=== PATIENT | male | born 1955 | race Caucasian/White ===

== ENCOUNTER 2019-02-02 12:01 | Inpatient (IN) ==
[2019-02-02] MEDS ORDERED: PROPOFOL 1,000 MG/100 ML BOTTLE IV ONE (12:07)
[2019-02-02 12:23] LABS: ABG Base Excess -17.9 MMOL/L (-2.5-2.5); ABG HCO3 11.5 MMOL/L (20-26); ABG PCO2 31.7 MM HG (35-48); ABG TCO2 9.8 MMOL/L (23-27)
[2019-02-02 12:25] LABS: ABG PH 7.137 (7.35-7.45)
[2019-02-02 12:39] LABS: Basophils % 0.1 % (0.0-0.8); Eosinophils % 0.1 % (0.00-10.9); Hematocrit 41.3 VOL% (42.0-52.0); Hemoglobin 13.8 GM/DL (14.0-18.0); Immature Granulocytes % 0.8 %; Immature Granulocytes Absolute 0.11 #; Lymphocytes # 0.8 10*3/uL (1.4-4.0); Mean Corpuscular HGB Conc 33.4 GM/DL (32-36); Mean Corpuscular Volume 85.3 FL (87-102); Mean Platelet Volume 10.8 FL (9.6-12.0); Monocytes % 2.3 % (1.7-12.7); Neutrophils % 90.7 % (38.7-73.9); Platelet Count 190 T/CUMM (130-400); Red Blood Count 4.84 MC/CUMM (3.8-5.5); Red Cell Distribution Width 15.6 % (9.3-17.3); White Blood Count 13.6 T/CUMM (4-12)
[2019-02-02 13:11] LABS: Apearance,Urine Slightly Hazy (Clear); Bilirubin,Urine Negative (Negative); Blood, Urine Large mg/dL (Negative); Glucose,Urine (UA) 150 mg/dL (Negative); Ketones,Urine Negative (Negative); Mucus,Urine Occasional /LPF (Occasional); Nitrite,Urine Negative (Negative); Protein,Urine 100 MG/DL; RBC,Urine 2170 /HPF (0-4); Urine Color Yellow (Yellow); Urine Specific Gravity 1.013 (1.001-1.035); Urine Urobilinogen < 2.0 EU/DL (0.2-1.0); WBC,Urine 1 /HPF (0-6)
[2019-02-02 13:28] LABS: Anisocytosis Slight; Lymphocytes 6 % (20-55); Platelet Estimate Normal; Segmented Neutrophils 86 % (50-85); Total Cells Counted 100
[2019-02-02 13:29] LABS: Ovalocytes Slight
[2019-02-02] MEDS ORDERED: CALCIUM GLUCONATE 2,000 MG in SODIUM CHLORIDE 0.9% 100 ML IV ONE (13:30)
[2019-02-02] MEDS ORDERED: SODIUM BICARBONATE 50 MEQ/50 ML VIAL IV STA (13:30)
[2019-02-02] MEDS: PROPOFOL 1,000 MG/100 ML BOTTLE IV SCH ×2 (14:36→18:00)
[2019-02-02] MEDS ORDERED: CALCIUM GLUCONATE 1,000 MG/10 ML VIAL IV ONE (14:39)
[2019-02-02 14:50] LABS: Hepatitis B Core IgM Quant 0.09 Index; Hepatitis B Surface Ag Quant 0.15 Index; Hepatitis B Surface Ag Result Negative (Negative); Hepatitis C Virus Ab Quant > 11.00 Index; Hepatitis C Virus Ab Result Positive (Negative)
[2019-02-02 15:05] LABS: ABG Base Excess -19.2 MMOL/L (-2.5-2.5); ABG HCO3 10.7 MMOL/L (20-26); ABG Oxygen Saturation 95.1 % (95-100); ABG PCO2 30.5 MM HG (35-48); ABG PO2 79.5 MM HG (80-95)
[2019-02-02 15:23] LABS: ABG PH 7.115 (7.35-7.45)
[2019-02-02] MEDS ORDERED: HEPARIN/NACL 0.9% 2 UNITS/ML 500 ML IV ONE (15:58)
[2019-02-02] MEDS ORDERED: LEVOFLOXACIN INJ 750 MG in PREMIX 1 EACH IV SCH (16:00)
[2019-02-02 17:23] LABS: Albumin 3.4 G/DL (3.4-5.0); Bilirubin,Total 0.4 MG/DL (0.2-1.0); Calcium 9.6 MG/DL (8.5-10.1); Osmolality,Calculated 315.3 MOS/KG (273-304); Total Protein 7.2 G/DL (6.4-8.3)
[2019-02-02] MEDS ORDERED: GLUCAGON 1 MG VIAL IM PRN (17:23)
[2019-02-02] MEDS ORDERED: DEXTROSE 50% 25 GM/50 ML VIAL IV PRN (17:23)
[2019-02-02] MEDS ORDERED: PROPOFOL 1,000 MG/100 ML BOTTLE IV SCH (17:23)
[2019-02-02] MEDS: INSULIN LISPRO 100 UNIT/ML SUBCUT SCH ×2 (18:41→20:24)
[2019-02-02] MEDS ORDERED: PHENYLEPHRINE DRIP 40 MG/250 ML PREMIX IV PRN (18:47)
[2019-02-02 19:31] LABS: ABG Base Excess -17.2 MMOL/L (-2.5-2.5); ABG HCO3 11.9 MMOL/L (20-26); ABG Oxygen Saturation 98.6 % (95-100); ABG PCO2 25.5 MM HG (35-48)
[2019-02-02 19:32] LABS: ABG PH 7.198 (7.35-7.45)
[2019-02-02] MEDS ORDERED: SODIUM BICARBONATE 50 MEQ/50 ML VIAL IV ONE (19:37)
[2019-02-02 19:58] LABS: Calcium 9.1 MG/DL (8.5-10.1)
[2019-02-02] MEDS: MEROPENEM 500 MG in SODIUM CHLORIDE 0.9% 100 ML IV SCH (20:04)
[2019-02-02] MEDS: SODIUM BICARB INJ 50 MEQ in SODIUM CHLORIDE 0.45% 1,000 ML IV SCH (20:24)
[2019-02-02] MEDS ORDERED: FAMOTIDINE 20 MG/2 ML VIAL IV SCH (21:00)
[2019-02-03] MEDS: INSULIN LISPRO 100 UNIT/ML SUBCUT SCH ×7 (00:29→23:59)
[2019-02-03] MEDS: MEROPENEM 500 MG in SODIUM CHLORIDE 0.9% 100 ML IV SCH (01:24)
[2019-02-03] MEDS ORDERED: SODIUM BICARBONATE 50 MEQ/50 ML VIAL IV ONE (01:28)
[2019-02-03] MEDS ORDERED: SODIUM CHLORIDE 0.9% 500 ML IV SCH (01:30)
[2019-02-03 01:57] LABS: Calcium 8.6 MG/DL (8.5-10.1); Osmolality,Calculated 303.4 MOS/KG (273-304)
[2019-02-03] MEDS ORDERED: INSULIN REGULAR IV ONE (02:00)
[2019-02-03] MEDS ORDERED: DEXTROSE 10% IV ONE (02:00)
[2019-02-03] MEDS: PROPOFOL 1,000 MG/100 ML BOTTLE IV SCH ×2 (03:57→16:38)
[2019-02-03 04:18] LABS: ABG Base Excess -9.8 MMOL/L (-2.5-2.5); ABG HCO3 15.1 MMOL/L (20-26); ABG Oxygen Saturation 98.8 % (95-100); ABG PH 7.319 (7.35-7.45)
[2019-02-03 04:25] LABS: Basophils % 0.1 % (0.0-0.8); Hematocrit 33.5 VOL% (42.0-52.0); Hemoglobin 11.5 GM/DL (14.0-18.0); Immature Granulocytes % 0.5 %; Lymphocytes # 0.9 10*3/uL (1.4-4.0); Lymphocytes % 4.5 % (21.2-54.2); Mean Corpuscular HGB Conc 34.3 GM/DL (32-36); Mean Corpuscular Volume 83.1 FL (87-102); Mean Platelet Volume 11.1 FL (9.6-12.0); Monocytes % 5.4 % (1.7-12.7); Neutrophils % 89.5 % (38.7-73.9); Platelet Count 134 T/CUMM (130-400); Red Blood Count 4.03 MC/CUMM (3.8-5.5); Red Cell Distribution Width 15.5 % (9.3-17.3); White Blood Count 20.4 T/CUMM (4-12)
[2019-02-03 04:48] LABS: Alanine Aminotransferase 17 U/L (16-61); Albumin 2.7 G/DL (3.4-5.0); Alkaline Phosphatase 59 U/L (45-117); Aspartate Amino Transferase 11 U/L (0-37); Bilirubin,Total < 0.39 MG/DL (0.2-1.0); Blood Urea Nitrogen 75 MG/DL (7-18); Calcium 7.8 MG/DL (8.5-10.1); Estimated Glom Filtration Rate 15 ML/MIN; Glucose 299 MG/DL (74-106); Osmolality,Calculated 305.8 MOS/KG (273-304); Total Protein 6.2 G/DL (6.4-8.3)
[2019-02-03 05:03] LABS: Band Neutrophils 1 % (0-10); Hypochromasia 1+; Lymphocytes 6 % (20-55); Microcytosis 1+; Segmented Neutrophils 88 % (50-85); Total Cells Counted 100
[2019-02-03 05:04] LABS: Ovalocytes Slight; Platelet Estimate Adequate
[2019-02-03] MEDS ORDERED: SODIUM CHLORIDE 0.9% 500 ML IV ONE (07:39)
[2019-02-03] MEDS ORDERED: CALCIUM GLUCONATE 2,000 MG in SODIUM CHLORIDE 0.9% 100 ML IV ONE (08:00)
[2019-02-03] MEDS: methylPREDNISolone SOD SUC 40 MG/1 ML VIAL IV SCH ×2 (08:56→20:12)
[2019-02-03] MEDS: ALBUTEROL/IPRATROPIUM 3 ML NEB RESP TX SCH ×2 (13:19→20:13)
[2019-02-03] MEDS ORDERED: HEPARIN 10,000 UNIT/10 ML VIAL IV SCH (13:30)
[2019-02-03] MEDS: SODIUM BICARB INJ 50 MEQ in SODIUM CHLORIDE 0.45% 1,000 ML IV SCH ×2 (13:53→23:53)
[2019-02-03] MEDS: FAMOTIDINE 20 MG/2 ML VIAL IV SCH (20:15)
[2019-02-03] MEDS: MORPHINE 4 MG/1 ML VIAL IV PRN (21:19)
[2019-02-03] MEDS ORDERED: ACETAMINOPHEN 650 MG SUPP RECTAL PRN (21:26)
[2019-02-04] MEDS: MORPHINE 4 MG/1 ML VIAL IV PRN ×2 (01:55→14:05)
[2019-02-04] MEDS: MEROPENEM 500 MG in SODIUM CHLORIDE 0.9% 100 ML IV SCH (02:07)
[2019-02-04] MEDS: ALBUTEROL/IPRATROPIUM 3 ML NEB RESP TX SCH ×4 (02:16→19:22)
[2019-02-04] MEDS ORDERED: SODIUM CHLORIDE 0.9% 1,000 ML IV ONE (02:44)
[2019-02-04] MEDS ORDERED: ENOXAPARIN 80 MG/0.8 ML SYRINGE SUBCUT SCH (03:00)
[2019-02-04 03:10] LABS: ABG Base Excess -4.1 MMOL/L (-2.5-2.5); ABG Oxygen Saturation 99.6 % (95-100); ABG PCO2 33.2 MM HG (35-48); ABG PH 7.391 (7.35-7.45); ABG TCO2 18.3 MMOL/L (23-27)
[2019-02-04 03:34] LABS: Basophils % 0.1 % (0.0-0.8); Hematocrit 28.8 VOL% (42.0-52.0); Hemoglobin 9.9 GM/DL (14.0-18.0); Immature Granulocytes % 0.8 %; Immature Granulocytes Absolute 0.13 #; Lymphocytes # 1.1 10*3/uL (1.4-4.0); Lymphocytes % 6.6 % (21.2-54.2); Mean Corpuscular HGB Conc 34.4 GM/DL (32-36); Mean Corpuscular Volume 83.7 FL (87-102); Mean Platelet Volume 11.4 FL (9.6-12.0); Monocytes % 3.2 % (1.7-12.7); Neutrophils % 89.3 % (38.7-73.9); Platelet Count 124 T/CUMM (130-400); Red Blood Count 3.44 MC/CUMM (3.8-5.5); Red Cell Distribution Width 15.6 % (9.3-17.3); White Blood Count 16.5 T/CUMM (4-12)
[2019-02-04 04:16] LABS: Calcium 7.5 MG/DL (8.5-10.1); Osmolality,Calculated 293.8 MOS/KG (273-304)
[2019-02-04] MEDS: INSULIN LISPRO 100 UNIT/ML SUBCUT SCH ×5 (04:20→20:46)
[2019-02-04] MEDS ORDERED: DILTIAZEM 50 MG/10 ML VIAL IV ONE (04:52)
[2019-02-04] MEDS: PROPOFOL 1,000 MG/100 ML BOTTLE IV SCH ×3 (05:51→20:57)
[2019-02-04] MEDS: methylPREDNISolone SOD SUC 40 MG/1 ML VIAL IV SCH ×2 (07:35→20:46)
[2019-02-04] MEDS: LEVOFLOXACIN INJ 500 MG in PREMIX 1 EACH IV SCH (07:37)
[2019-02-04] MEDS: SODIUM BICARB INJ 50 MEQ in SODIUM CHLORIDE 0.45% 1,000 ML IV SCH ×2 (11:11→21:43)
[2019-02-04] MEDS ORDERED: MAGNESIUM SULF RIDER 1 GM in PREMIX 1 EACH IV ONE (11:30)
[2019-02-04 12:47] LABS: PT Patient Result 10.9 SECS (9.6-12.2)
[2019-02-04] MEDS: APIXABAN 2.5 MG TABLET PO SCH (20:45)
[2019-02-04] MEDS: ASCORBIC ACID 500 MG TABLET PO SCH (20:45)
[2019-02-04] MEDS: SERTRALINE 25 MG TABLET PO SCH (20:45)
[2019-02-04] MEDS: carvediloL 3.125 MG TABLET PO SCH (20:45)
[2019-02-04] MEDS: FAMOTIDINE 20 MG/2 ML VIAL IV SCH (20:49)
[2019-02-05] MEDS: INSULIN LISPRO 100 UNIT/ML SUBCUT SCH ×7 (00:28→23:21)
[2019-02-05] MEDS: ALBUTEROL/IPRATROPIUM 3 ML NEB RESP TX SCH ×4 (01:47→20:14)
[2019-02-05] MEDS: MEROPENEM 500 MG in SODIUM CHLORIDE 0.9% 100 ML IV SCH (02:12)
[2019-02-05] MEDS: PROPOFOL 1,000 MG/100 ML BOTTLE IV SCH ×4 (03:25→21:19)
[2019-02-05 03:31] LABS: ABG Base Excess -0.3 MMOL/L (-2.5-2.5); ABG HCO3 24.2 MMOL/L (20-26); ABG Oxygen Saturation 99.6 % (95-100); ABG PCO2 36.7 MM HG (35-48); ABG PH 7.421 (7.35-7.45); ABG TCO2 21.3 MMOL/L (23-27); Allen Test Positive; Pt O2 Delivery Device Ventilator
[2019-02-05 05:23] LABS: Hematocrit 24.9 VOL% (42.0-52.0); Hemoglobin 8.4 GM/DL (14.0-18.0); Immature Granulocytes % 0.6 %; Immature Granulocytes Absolute 0.05 #; Lymphocytes # 0.7 10*3/uL (1.4-4.0); Lymphocytes % 7.8 % (21.2-54.2); Mean Corpuscular HGB Conc 33.7 GM/DL (32-36); Mean Corpuscular Volume 84.7 FL (87-102); Mean Platelet Volume 11.6 FL (9.6-12.0); Monocytes % 4.4 % (1.7-12.7); Neutrophils % 87.2 % (38.7-73.9); Platelet Count 106 T/CUMM (130-400); Red Blood Count 2.94 MC/CUMM (3.8-5.5); Red Cell Distribution Width 15.2 % (9.3-17.3); White Blood Count 8.5 T/CUMM (4-12)
[2019-02-05 05:55] LABS: Prealbumin 21.3 MG/DL (20-40)
[2019-02-05 05:57] LABS: Albumin 2.4 G/DL (3.4-5.0); Bilirubin,Total 0.7 MG/DL (0.2-1.0); Calcium 7.6 MG/DL (8.5-10.1); Total Protein 5.4 G/DL (6.4-8.3)
[2019-02-05] MEDS: methylPREDNISolone SOD SUC 40 MG/1 ML VIAL IV SCH ×2 (07:49→23:18)
[2019-02-05] MEDS: MORPHINE 4 MG/1 ML VIAL IV PRN ×4 (07:50→17:11)
[2019-02-05] MEDS: SODIUM BICARB INJ 50 MEQ in SODIUM CHLORIDE 0.45% 1,000 ML IV SCH ×2 (08:23→18:32)
[2019-02-05] MEDS: carvediloL 3.125 MG TABLET PO SCH ×2 (08:25→21:49)
[2019-02-05] MEDS: ASCORBIC ACID 500 MG TABLET PO SCH ×2 (08:25→21:50)
[2019-02-05] MEDS: APIXABAN 2.5 MG TABLET PO SCH ×2 (08:25→21:49)
[2019-02-05] MEDS ORDERED: SODIUM POLYSTYRENE SULFATE 15 GM/60 ML BOTTLE PO PRN (10:05)
[2019-02-05] MEDS: SERTRALINE 25 MG TABLET PO SCH (21:50)
[2019-02-05] MEDS: FAMOTIDINE 20 MG/2 ML VIAL IV SCH (23:20)
[2019-02-06] MEDS: ALBUTEROL/IPRATROPIUM 3 ML NEB RESP TX SCH ×4 (00:11→19:25)
[2019-02-06] MEDS: PROPOFOL 1,000 MG/100 ML BOTTLE IV SCH ×5 (01:44→20:48)
[2019-02-06] MEDS: MEROPENEM 500 MG in SODIUM CHLORIDE 0.9% 100 ML IV SCH (03:16)
[2019-02-06 04:03] LABS: ABG Base Excess 1.2 MMOL/L (-2.5-2.5); ABG HCO3 25.1 MMOL/L (20-26); ABG Oxygen Saturation 98.7 % (95-100); ABG PCO2 36.7 MM HG (35-48); ABG PH 7.453 (7.35-7.45); ABG PO2 206.9 MM HG (80-95); ABG TCO2 26.2 MMOL/L (23-27); Allen Test Positive; Pt O2 Delivery Device Ventilator
[2019-02-06 04:17] LABS: Calcium 7.6 MG/DL (8.5-10.1); Osmolality,Calculated 295.7 MOS/KG (273-304)
[2019-02-06 04:45] LABS: Basophils % 0.1 % (0.0-0.8); Hematocrit 27.1 VOL% (42.0-52.0); Hemoglobin 9.2 GM/DL (14.0-18.0); Immature Granulocytes % 0.8 %; Immature Granulocytes Absolute 0.07 #; Lymphocytes # 0.5 10*3/uL (1.4-4.0); Lymphocytes % 5.4 % (21.2-54.2); Mean Corpuscular HGB Conc 33.9 GM/DL (32-36); Mean Corpuscular Volume 85.8 FL (87-102); Mean Platelet Volume 12.1 FL (9.6-12.0); Monocytes % 2.7 % (1.7-12.7); Red Blood Count 3.16 MC/CUMM (3.8-5.5); Red Cell Distribution Width 14.9 % (9.3-17.3); White Blood Count 8.9 T/CUMM (4-12)
[2019-02-06 04:47] LABS: Platelet Count 95 T/CUMM (130-400)
[2019-02-06] MEDS: INSULIN LISPRO 100 UNIT/ML SUBCUT SCH ×6 (05:17→23:40)
[2019-02-06 05:24] LABS: Hypochromasia 1+; Lymphocytes 5 % (20-55); Microcytosis 1+; Segmented Neutrophils 90 % (50-85)
[2019-02-06 05:25] LABS: Ovalocytes Slight; Platelet Estimate Decreased
[2019-02-06 05:26] LABS: Total Cells Counted 100
[2019-02-06] MEDS: SODIUM BICARB INJ 50 MEQ in SODIUM CHLORIDE 0.45% 1,000 ML IV SCH ×2 (05:27→16:30)
[2019-02-06] MEDS: MORPHINE 4 MG/1 ML VIAL IV PRN ×2 (05:50→21:10)
[2019-02-06] MEDS: LEVOFLOXACIN INJ 500 MG in PREMIX 1 EACH IV SCH (07:55)
[2019-02-06] MEDS: methylPREDNISolone SOD SUC 40 MG/1 ML VIAL IV SCH ×2 (07:55→20:25)
[2019-02-06] MEDS: carvediloL 3.125 MG TABLET PO SCH ×2 (09:40→20:25)
[2019-02-06] MEDS: ASCORBIC ACID 500 MG TABLET PO SCH ×2 (09:40→20:25)
[2019-02-06] MEDS: APIXABAN 2.5 MG TABLET PO SCH ×2 (09:40→20:25)
[2019-02-06] MEDS ORDERED: DIGOXIN 0.5 MG/2 ML AMP IV ONE ×2 (09:43→12:00)
[2019-02-06 19:38] VITALS: BP 143/74
[2019-02-06] MEDS: FAMOTIDINE 20 MG/2 ML VIAL IV SCH (20:25)
[2019-02-06] MEDS: SERTRALINE 25 MG TABLET PO SCH (20:41)
[2019-02-07] MEDS: PROPOFOL 1,000 MG/100 ML BOTTLE IV SCH ×5 (01:33→22:44)
[2019-02-07] MEDS: ALBUTEROL/IPRATROPIUM 3 ML NEB RESP TX SCH ×4 (01:39→18:51)
[2019-02-07] MEDS: SODIUM BICARB INJ 50 MEQ in SODIUM CHLORIDE 0.45% 1,000 ML IV SCH ×3 (02:53→23:52)
[2019-02-07] MEDS: MEROPENEM 500 MG in SODIUM CHLORIDE 0.9% 100 ML IV SCH (02:53)
[2019-02-07 03:48] LABS: ABG Base Excess 2.3 MMOL/L (-2.5-2.5); ABG HCO3 26.5 MMOL/L (20-26); ABG Oxygen Saturation 99.1 % (95-100); ABG PH 7.409 (7.35-7.45); ABG TCO2 24.9 MMOL/L (23-27); Allen Test Positive; Pt O2 Delivery Device Ventilator
[2019-02-07 03:52] LABS: Hematocrit 27.8 VOL% (42.0-52.0); Hemoglobin 9.2 GM/DL (14.0-18.0); Immature Granulocytes % 0.7 %; Immature Granulocytes Absolute 0.05 #; Lymphocytes # 0.5 10*3/uL (1.4-4.0); Lymphocytes % 7.4 % (21.2-54.2); Mean Corpuscular HGB Conc 33.1 GM/DL (32-36); Mean Corpuscular Volume 87.7 FL (87-102); Mean Platelet Volume 10.8 FL (9.6-12.0); Monocytes % 5.1 % (1.7-12.7); Neutrophils % 86.8 % (38.7-73.9); Platelet Count 98 T/CUMM (130-400); Red Blood Count 3.17 MC/CUMM (3.8-5.5); Red Cell Distribution Width 14.6 % (9.3-17.3); White Blood Count 6.9 T/CUMM (4-12)
[2019-02-07 04:03] LABS: Calcium 7.6 MG/DL (8.5-10.1); Osmolality,Calculated 301.5 MOS/KG (273-304)
[2019-02-07] MEDS: INSULIN LISPRO 100 UNIT/ML SUBCUT SCH ×6 (04:38→23:53)
[2019-02-07 04:43] LABS: Platelet Estimate Decreased; Polychromasia Few
[2019-02-07] MEDS: methylPREDNISolone SOD SUC 40 MG/1 ML VIAL IV SCH ×2 (09:00→20:24)
[2019-02-07] MEDS ORDERED: DIGOXIN 0.5 MG/2 ML AMP IV SCH (09:00)
[2019-02-07] MEDS: carvediloL 3.125 MG TABLET PO SCH ×2 (09:09→20:20)
[2019-02-07] MEDS: APIXABAN 2.5 MG TABLET PO SCH ×2 (09:09→20:20)
[2019-02-07] MEDS: ASCORBIC ACID 500 MG TABLET PO SCH ×2 (09:09→20:20)
[2019-02-07] MEDS: MORPHINE 4 MG/1 ML VIAL IV PRN ×2 (17:58→21:58)
[2019-02-07] MEDS: SERTRALINE 25 MG TABLET PO SCH (20:20)
[2019-02-07] MEDS: FAMOTIDINE 20 MG/2 ML VIAL IV SCH (20:20)
[2019-02-08] MEDS: ALBUTEROL/IPRATROPIUM 3 ML NEB RESP TX SCH ×4 (00:40→20:26)
[2019-02-08] MEDS: MORPHINE 4 MG/1 ML VIAL IV PRN ×3 (02:10→19:47)
[2019-02-08] MEDS: MEROPENEM 500 MG in SODIUM CHLORIDE 0.9% 100 ML IV SCH (02:11)
[2019-02-08 03:24] LABS: Allen Test Positive; Pt O2 Delivery Device Ventilator
[2019-02-08 03:25] LABS: ABG Base Excess 2.7 MMOL/L (-2.5-2.5); ABG HCO3 26.9 MMOL/L (20-26); ABG PCO2 47.1 MM HG (35-48); ABG PH 7.386 (7.35-7.45); ABG TCO2 25.9 MMOL/L (23-27)
[2019-02-08 03:38] LABS: Eosinophils % 0.1 % (0.00-10.9); Hematocrit 28.4 VOL% (42.0-52.0); Hemoglobin 9.1 GM/DL (14.0-18.0); Immature Granulocytes % 1.1 %; Immature Granulocytes Absolute 0.08 #; Lymphocytes # 0.5 10*3/uL (1.4-4.0); Mean Corpuscular Volume 89.3 FL (87-102); Mean Platelet Volume 10.9 FL (9.6-12.0); Monocytes % 5.1 % (1.7-12.7); Neutrophils % 86.7 % (38.7-73.9); Platelet Count 91 T/CUMM (130-400); Red Blood Count 3.18 MC/CUMM (3.8-5.5); Red Cell Distribution Width 14.2 % (9.3-17.3); White Blood Count 7.3 T/CUMM (4-12)
[2019-02-08 03:57] LABS: Calcium 7.4 MG/DL (8.5-10.1); Osmolality,Calculated 303.4 MOS/KG (273-304)
[2019-02-08 04:01] LABS: Anisocytosis Slight; Microcytosis 1+; Ovalocytes Slight; Platelet Estimate Decreased
[2019-02-08] MEDS: INSULIN LISPRO 100 UNIT/ML SUBCUT SCH ×5 (04:40→20:07)
[2019-02-08] MEDS: PROPOFOL 1,000 MG/100 ML BOTTLE IV SCH (05:04)
[2019-02-08] MEDS: APIXABAN 2.5 MG TABLET PO SCH ×2 (08:16→20:09)
[2019-02-08] MEDS: ASCORBIC ACID 500 MG TABLET PO SCH ×2 (08:17→20:08)
[2019-02-08] MEDS: carvediloL 3.125 MG TABLET PO SCH (08:17)
[2019-02-08] MEDS: LEVOFLOXACIN INJ 500 MG in PREMIX 1 EACH IV SCH (08:26)
[2019-02-08] MEDS: methylPREDNISolone SOD SUC 40 MG/1 ML VIAL IV SCH ×2 (08:26→19:48)
[2019-02-08] MEDS: SODIUM BICARB INJ 50 MEQ in SODIUM CHLORIDE 0.45% 1,000 ML IV SCH ×3 (11:16→21:57)
[2019-02-08] MEDS: hydrALAZINE 25 MG TABLET PO SCH ×3 (14:20→20:10)
[2019-02-08] MEDS ORDERED: hydrALAZINE 20 MG/1 ML VIAL IV PRN (14:48)
[2019-02-08] MEDS: amLODIPine 10 MG TABLET PO SCH (15:25)
[2019-02-08] MEDS: FAMOTIDINE 20 MG/2 ML VIAL IV SCH (20:08)
[2019-02-08] MEDS: SERTRALINE 25 MG TABLET PO SCH (20:10)
[2019-02-08] MEDS: carvediloL 6.25 MG TABLET PO SCH (20:12)
[2019-02-09] MEDS: INSULIN LISPRO 100 UNIT/ML SUBCUT SCH ×4 (00:49→12:02)
[2019-02-09] MEDS: ALBUTEROL/IPRATROPIUM 3 ML NEB RESP TX SCH ×3 (01:17→12:47)
[2019-02-09] MEDS: MORPHINE 4 MG/1 ML VIAL IV PRN ×2 (01:20→07:10)
[2019-02-09 05:39] LABS: Calcium 7.9 MG/DL (8.5-10.1); Osmolality,Calculated 296.4 MOS/KG (273-304)
[2019-02-09] MEDS: SODIUM BICARB INJ 50 MEQ in SODIUM CHLORIDE 0.45% 1,000 ML IV SCH (09:17)
[2019-02-09] MEDS: carvediloL 6.25 MG TABLET PO SCH (09:25)
[2019-02-09] MEDS: hydrALAZINE 25 MG TABLET PO SCH ×2 (09:25→12:27)
[2019-02-09] MEDS: ASCORBIC ACID 500 MG TABLET PO SCH (09:25)
[2019-02-09] MEDS: amLODIPine 10 MG TABLET PO SCH (09:26)
[2019-02-09] MEDS: APIXABAN 2.5 MG TABLET PO SCH (09:26)
[2019-02-09] MEDS: methylPREDNISolone SOD SUC 40 MG/1 ML VIAL IV SCH (09:38)
== END 2019-02-09 13:08 | DRG 870 ==
LOC: EDBD → EDUNIT# → N.ED 12:01 → SUATTDRO 13:33 → N.EDINP 13:33 → N.ICU 14:59
PROVIDERS: ADMIT Internal Medicine; ATTEND Internal Medicine

== ENCOUNTER 2019-09-15 21:34 | Inpatient (IN) ==
[2019-09-15] MEDS ORDERED: ONDANSETRON 4 MG/2 ML VIAL IV STA (22:05)
[2019-09-15] MEDS ORDERED: DILTIAZEM 50 MG/10 ML VIAL IV STA (22:05)
[2019-09-15] MEDS ORDERED: methylPREDNISolone SOD SUC 125 MG/2 ML VIAL IV STA (22:05)
[2019-09-15] MEDS ORDERED: SODIUM CHLORIDE 0.9% 500 ML IV STA (22:05)
[2019-09-15] MEDS ORDERED: AZITHROMYCIN INJ 500 MG in SODIUM CHLORIDE 0.9% 250 ML IV STA (22:05)
[2019-09-15] MEDS ORDERED: dilTIAZem Drip 125 MG/125 ML PREMIX IV SCH (22:30)
[2019-09-15 23:02] LABS: Basophils % 0.2 % (0.0-0.8); Hematocrit 41.6 VOL% (42.0-52.0); Hemoglobin 14.2 GM/DL (14.0-18.0); Immature Granulocytes % 0.3 %; Immature Granulocytes Absolute 0.03 #; Lymphocytes # 0.6 10*3/uL (1.4-4.0); Lymphocytes % 6.5 % (21.2-54.2); Mean Corpuscular HGB Conc 34.1 GM/DL (32-36); Mean Corpuscular Volume 82.2 FL (87-102); Mean Platelet Volume 12.8 FL (9.6-12.0); Monocytes % 5.9 % (1.7-12.7); Neutrophils % 87.1 % (38.7-73.9); Platelet Count 102 T/CUMM (130-400); Red Blood Count 5.06 MC/CUMM (3.8-5.5); Red Cell Distribution Width 14.7 % (9.3-17.3); White Blood Count 9.3 T/CUMM (4-12)
[2019-09-15 23:11] LABS: INR 1.1; PT Patient Result 11.9 SECS (9.8-11.9)
[2019-09-15 23:25] LABS: Amorphous Crystals,Urine Occasional /HPF (Few); Apearance,Urine Slightly Hazy (Clear); Bilirubin,Urine Negative (Negative); Blood, Urine Small mg/dL (Negative); Glucose,Urine (UA) 50 mg/dL (Negative); Ketones,Urine Negative (Negative); Mucus,Urine Occasional /LPF (Occasional); Nitrite,Urine Negative (Negative); Protein,Urine >=500 MG/DL; Urine Color Yellow (Yellow); Urine Specific Gravity 1.014 (1.001-1.035); Urine Urobilinogen < 2.0 EU/DL (0.2-1.0)
[2019-09-15 23:35] LABS: Alanine Aminotransferase 37 U/L (16-61); Albumin 3.3 G/DL (3.4-5.0); Alkaline Phosphatase 78 U/L (45-117); Aspartate Amino Transferase 28 U/L (0-37); Blood Urea Nitrogen 75 MG/DL (7-18); Calcium 8.7 MG/DL (8.5-10.1); Ferritin 663.5 ng/ml (26-388); Glucose 271 MG/DL (74-106); Osmolality,Calculated 306.7 MOS/KG (273-304); Total Protein 7.5 G/DL (6.4-8.3)
[2019-09-15 23:37] LABS: Estimated Glom Filtration Rate 0 ML/MIN; Troponin I 0.083 NG/ML (0.00-0.045)
[2019-09-16] MEDS ORDERED: ONDANSETRON 4 MG/2 ML VIAL IV PRN (02:28)
[2019-09-16] MEDS ORDERED: SODIUM CHLORIDE 0.9% 1,000 ML IV ONE (02:28)
[2019-09-16] MEDS ORDERED: ALBUTEROL 2.5 MG/3 ML NEB RESP TX PRN (02:28)
[2019-09-16] MEDS ORDERED: PROMETHAZINE 25 MG/1 ML VIAL IM PRN (02:28)
[2019-09-16] MEDS: PANTOPRAZOLE 40 MG VIAL IV SCH (02:55)
[2019-09-16] MEDS: dilTIAZem Drip 125 MG/125 ML PREMIX IV SCH (03:25)
[2019-09-16] MEDS: SODIUM CHLORIDE 0.9% 1,000 ML IV SCH ×2 (04:15→15:04)
[2019-09-16 06:05] LABS: Basophils % 0.1 % (0.0-0.8); Hematocrit 35.7 VOL% (42.0-52.0); Hemoglobin 11.9 GM/DL (14.0-18.0); Immature Granulocytes % 0.4 %; Immature Granulocytes Absolute 0.04 #; Lymphocytes # 0.4 10*3/uL (1.4-4.0); Lymphocytes % 4.8 % (21.2-54.2); Mean Corpuscular HGB Conc 33.3 GM/DL (32-36); Mean Corpuscular Volume 83.2 FL (87-102); Mean Platelet Volume 12.6 FL (9.6-12.0); Monocytes % 4.3 % (1.7-12.7); Neutrophils % 90.4 % (38.7-73.9); Platelet Count 71 T/CUMM (130-400); Red Blood Count 4.29 MC/CUMM (3.8-5.5); Red Cell Distribution Width 14.8 % (9.3-17.3); White Blood Count 9.1 T/CUMM (4-12)
[2019-09-16 06:23] LABS: Alanine Aminotransferase 34 U/L (16-61); Albumin 2.7 G/DL (3.4-5.0); Alkaline Phosphatase 64 U/L (45-117); Aspartate Amino Transferase 24 U/L (0-37); Blood Urea Nitrogen 83 MG/DL (7-18); Calcium 8.1 MG/DL (8.5-10.1); Estimated Glom Filtration Rate 19 ML/MIN; Glucose 317 MG/DL (74-106); Osmolality,Calculated 317.3 MOS/KG (273-304); Total Protein 6.5 G/DL (6.4-8.3)
[2019-09-16 06:24] LABS: Troponin I 0.141 NG/ML (0.00-0.045)
[2019-09-16 06:27] LABS: Band Neutrophils 14 % (0-10); Hypochromasia 1+; Lymphocytes 3 % (20-55); Microcytosis 1+; Ovalocytes Few; Segmented Neutrophils 82 % (50-85); Total Cells Counted 100
[2019-09-16 06:28] LABS: Platelet Estimate Decreased
[2019-09-16] MEDS: APIXABAN 2.5 MG TABLET PO SCH ×2 (08:30→21:43)
[2019-09-16] MEDS ORDERED: ACETAMINOPHEN 325 MG TABLET PO PRN (08:56)
[2019-09-16] MEDS ORDERED: MAGNESIUM HYDROXIDE SUSP 30 ML UDCUP PO PRN (08:56)
[2019-09-16] MEDS ORDERED: DILTIAZEM CD 180 MG CAPSULE PO SCH (10:00)
[2019-09-16] MEDS: INSULIN LISPRO 100 UNIT/ML SUBCUT SCH ×3 (11:40→21:43)
[2019-09-16] MEDS ORDERED: NICOTINE 21 MG/24 HR PATCH TRANSDERM PRN (12:56)
[2019-09-16] MEDS: busPIRone 5 MG TABLET PO SCH ×4 (13:21→21:43)
[2019-09-16] MEDS: ASCORBIC ACID 500 MG TABLET PO SCH ×4 (13:21→21:44)
[2019-09-16] MEDS: ATORVASTATIN 40 MG TABLET PO SCH ×3 (13:21→17:01)
[2019-09-16] MEDS: ASPIRIN EC 81 MG TABLET PO SCH ×3 (13:21→17:01)
[2019-09-16] MEDS: METOPROLOL TARTRATE 25 MG TABLET PO SCH ×4 (13:21→21:44)
[2019-09-16] MEDS: HYDROmorphone 2 MG/1 ML VIAL IV PRN ×3 (13:37→21:42)
[2019-09-16 21:13] LABS: Troponin I 0.128 NG/ML (0.00-0.045)
[2019-09-16] MEDS: MENTHOL/ZINC OXIDE OINT 71 GM JAR TOP SCH (21:43)
[2019-09-16] MEDS: risperiDONE 1 MG TABLET PO SCH (21:44)
[2019-09-16] MEDS: SERTRALINE 25 MG TABLET PO SCH (21:44)
[2019-09-17] MEDS: SODIUM CHLORIDE 0.9% 1,000 ML IV SCH ×2 (01:17→09:26)
[2019-09-17] MEDS: PANTOPRAZOLE 40 MG VIAL IV SCH (01:32)
[2019-09-17] MEDS: dilTIAZem Drip 125 MG/125 ML PREMIX IV SCH (02:51)
[2019-09-17 04:09] LABS: Basophils % 0.1 % (0.0-0.8); Hematocrit 33.5 VOL% (42.0-52.0); Hemoglobin 10.9 GM/DL (14.0-18.0); Immature Granulocytes % 0.5 %; Immature Granulocytes Absolute 0.04 #; Lymphocytes # 0.4 10*3/uL (1.4-4.0); Lymphocytes % 5.7 % (21.2-54.2); Mean Corpuscular HGB Conc 32.5 GM/DL (32-36); Mean Corpuscular Volume 84.6 FL (87-102); Mean Platelet Volume 12.5 FL (9.6-12.0); Monocytes % 4.5 % (1.7-12.7); Neutrophils % 89.2 % (38.7-73.9); Platelet Count 82 T/CUMM (130-400); Red Blood Count 3.96 MC/CUMM (3.8-5.5); Red Cell Distribution Width 14.8 % (9.3-17.3); White Blood Count 7.4 T/CUMM (4-12)
[2019-09-17 04:36] LABS: Band Neutrophils 2 % (0-10); Lymphocytes 2 % (20-55); Segmented Neutrophils 92 % (50-85); Total Cells Counted 100
[2019-09-17 04:37] LABS: Burr Cells Slight; Microcytosis Slight; Ovalocytes Slight; Platelet Estimate Decreased
[2019-09-17 04:53] LABS: Risk Ratio 5.53; VLDL CHOLESTEROL 33.6 MG/DL
[2019-09-17 04:59] LABS: Calcium 8.1 MG/DL (8.5-10.1); Osmolality,Calculated 330.3 MOS/KG (273-304)
[2019-09-17] MEDS ORDERED: INSULIN LISPRO 100 UNIT/ML SUBCUT SCH (08:00)
[2019-09-17] MEDS: INSULIN LISPRO 100 UNIT/ML SUBCUT SCH ×4 (08:22→17:34)
[2019-09-17] MEDS: ATORVASTATIN 40 MG TABLET PO SCH ×2 (09:25→10:43)
[2019-09-17] MEDS: MENTHOL/ZINC OXIDE OINT 71 GM JAR TOP SCH ×2 (09:25→21:44)
[2019-09-17] MEDS: ASCORBIC ACID 500 MG TABLET PO SCH ×3 (09:25→21:11)
[2019-09-17] MEDS: APIXABAN 2.5 MG TABLET PO SCH ×3 (09:25→21:11)
[2019-09-17] MEDS: METOPROLOL TARTRATE 25 MG TABLET PO SCH ×3 (09:25→21:11)
[2019-09-17] MEDS: busPIRone 5 MG TABLET PO SCH ×3 (09:26→21:11)
[2019-09-17] MEDS: ASPIRIN EC 81 MG TABLET PO SCH ×2 (09:26→10:43)
[2019-09-17] MEDS: SODIUM CHLORIDE 0.45% 1,000 ML IV SCH ×2 (10:10→21:43)
[2019-09-17] MEDS: HYDROmorphone 2 MG/1 ML VIAL IV PRN ×3 (10:23→20:40)
[2019-09-17] MEDS ORDERED: LEVOFLOXACIN INJ 750 MG in PREMIX 1 EACH IV ONE (17:00)
[2019-09-17] MEDS: DEXAMETHASONE INJ 6 MG in SODIUM CHLORIDE 0.9% 50 ML IV SCH (18:16)
[2019-09-17] MEDS: SERTRALINE 25 MG TABLET PO SCH (21:10)
[2019-09-17] MEDS: risperiDONE 1 MG TABLET PO SCH (21:10)
[2019-09-18] MEDS: INSULIN LISPRO 100 UNIT/ML SUBCUT SCH ×4 (00:01→17:41)
[2019-09-18] MEDS: PANTOPRAZOLE 40 MG VIAL IV SCH (01:48)
[2019-09-18] MEDS: dilTIAZem Drip 125 MG/125 ML PREMIX IV SCH (03:21)
[2019-09-18 05:29] LABS: Calcium 7.9 MG/DL (8.5-10.1); Osmolality,Calculated 324.7 MOS/KG (273-304)
[2019-09-18] MEDS: SODIUM CHLORIDE 0.45% 1,000 ML IV SCH ×3 (08:00→21:10)
[2019-09-18] MEDS: APIXABAN 2.5 MG TABLET PO SCH ×2 (08:01→20:44)
[2019-09-18] MEDS: ATORVASTATIN 40 MG TABLET PO SCH (08:01)
[2019-09-18] MEDS: DEXAMETHASONE INJ 6 MG in SODIUM CHLORIDE 0.9% 50 ML IV SCH (08:01)
[2019-09-18] MEDS: METOPROLOL TARTRATE 25 MG TABLET PO SCH ×2 (08:01→20:44)
[2019-09-18] MEDS: ASCORBIC ACID 500 MG TABLET PO SCH ×2 (08:01→20:44)
[2019-09-18] MEDS: ASPIRIN EC 81 MG TABLET PO SCH (08:02)
[2019-09-18] MEDS: MENTHOL/ZINC OXIDE OINT 71 GM JAR TOP SCH ×2 (08:02→20:44)
[2019-09-18] MEDS: busPIRone 5 MG TABLET PO SCH ×2 (08:02→20:44)
[2019-09-18] MEDS: HYDROmorphone 2 MG/1 ML VIAL IV PRN (20:20)
[2019-09-18] MEDS: risperiDONE 1 MG TABLET PO SCH (20:44)
[2019-09-18] MEDS: SERTRALINE 25 MG TABLET PO SCH (20:45)
[2019-09-19] MEDS: INSULIN LISPRO 100 UNIT/ML SUBCUT SCH ×4 (00:10→17:09)
[2019-09-19 04:08] LABS: Hematocrit 35.2 VOL% (42.0-52.0); Hemoglobin 11.4 GM/DL (14.0-18.0); Immature Granulocytes % 0.7 %; Immature Granulocytes Absolute 0.04 #; Lymphocytes # 0.2 10*3/uL (1.4-4.0); Lymphocytes % 4.3 % (21.2-54.2); Mean Corpuscular HGB Conc 32.4 GM/DL (32-36); Mean Platelet Volume 12.8 FL (9.6-12.0); Monocytes % 4.4 % (1.7-12.7); Neutrophils % 90.6 % (38.7-73.9); Platelet Count 73 T/CUMM (130-400); Red Blood Count 4.14 MC/CUMM (3.8-5.5); Red Cell Distribution Width 14.6 % (9.3-17.3); White Blood Count 5.6 T/CUMM (4-12)
[2019-09-19 04:15] LABS: Calcium 8.2 MG/DL (8.5-10.1); Osmolality,Calculated 326.6 MOS/KG (273-304)
[2019-09-19] MEDS: SODIUM CHLORIDE 0.45% 1,000 ML IV SCH ×3 (04:18→13:17)
[2019-09-19] MEDS: dilTIAZem Drip 125 MG/125 ML PREMIX IV SCH (04:18)
[2019-09-19] MEDS: PANTOPRAZOLE 40 MG VIAL IV SCH (04:20)
[2019-09-19 07:16] LABS: Anisocytosis 1+; Band Neutrophils 6 % (0-10); Eosinophils 1 % (0-10); Lymphocytes 2 % (20-55); Metamyelocytes 1 %; Platelet Estimate Decreased; Segmented Neutrophils 88 % (50-85); Total Cells Counted 100
[2019-09-19 07:17] LABS: Microcytosis 1+
[2019-09-19] MEDS: ATORVASTATIN 40 MG TABLET PO SCH (08:04)
[2019-09-19] MEDS: APIXABAN 2.5 MG TABLET PO SCH ×2 (08:04→21:07)
[2019-09-19] MEDS: DEXAMETHASONE 4 MG/1 ML VIAL IV SCH (08:04)
[2019-09-19] MEDS: ASCORBIC ACID 500 MG TABLET PO SCH ×2 (08:04→21:07)
[2019-09-19] MEDS: METOPROLOL TARTRATE 25 MG TABLET PO SCH ×2 (08:04→21:07)
[2019-09-19] MEDS: MENTHOL/ZINC OXIDE OINT 71 GM JAR TOP SCH ×2 (08:05→21:07)
[2019-09-19] MEDS: ASPIRIN EC 81 MG TABLET PO SCH (08:05)
[2019-09-19] MEDS: busPIRone 5 MG TABLET PO SCH ×2 (08:05→21:07)
[2019-09-19] MEDS: LEVOFLOXACIN INJ 500 MG in PREMIX 1 EACH IV SCH (16:35)
[2019-09-19] MEDS: HYDROmorphone 2 MG/1 ML VIAL IV PRN (18:10)
[2019-09-19] MEDS ORDERED: INSULIN GLARGINE 100 UNIT/ML SUBCUT SCH (21:00)
[2019-09-19] MEDS: risperiDONE 1 MG TABLET PO SCH (21:07)
[2019-09-19] MEDS: SERTRALINE 25 MG TABLET PO SCH (21:07)
[2019-09-20] MEDS: INSULIN LISPRO 100 UNIT/ML SUBCUT SCH ×5 (01:16→18:03)
[2019-09-20] MEDS: PANTOPRAZOLE 40 MG VIAL IV SCH (01:37)
[2019-09-20 04:54] LABS: Calcium 8.4 MG/DL (8.5-10.1); Osmolality,Calculated 324.6 MOS/KG (273-304)
[2019-09-20] MEDS: ASCORBIC ACID 500 MG TABLET PO SCH ×2 (08:25→21:21)
[2019-09-20] MEDS: ASPIRIN EC 81 MG TABLET PO SCH (08:26)
[2019-09-20] MEDS: APIXABAN 2.5 MG TABLET PO SCH (08:26)
[2019-09-20] MEDS: busPIRone 5 MG TABLET PO SCH ×2 (08:26→21:21)
[2019-09-20] MEDS: METOPROLOL TARTRATE 25 MG TABLET PO SCH ×2 (08:26→21:21)
[2019-09-20] MEDS: ATORVASTATIN 40 MG TABLET PO SCH (08:26)
[2019-09-20] MEDS: DEXAMETHASONE 4 MG/1 ML VIAL IV SCH (08:26)
[2019-09-20] MEDS: MENTHOL/ZINC OXIDE OINT 71 GM JAR TOP SCH ×2 (09:30→21:21)
[2019-09-20] MEDS ORDERED: INSULIN GLARGINE 100 UNIT/ML SUBCUT SCH (12:03)
[2019-09-20 14:07] LABS: Partial Thromboplastin Time 24.3 SECS (23.9-33.8)
[2019-09-20] MEDS ORDERED: REMDESIVIR 200 MG in SODIUM CHLORIDE 0.9% 210 ML IV ONE (15:00)
[2019-09-20] MEDS: ENOXAPARIN 40 MG/0.4 ML SYRINGE SUBCUT SCH (15:50)
[2019-09-20] MEDS ORDERED: INSULIN LISPRO 100 UNIT/ML SUBCUT SCH (16:30)
[2019-09-20] MEDS: SERTRALINE 25 MG TABLET PO SCH (21:21)
[2019-09-20] MEDS: risperiDONE 1 MG TABLET PO SCH (21:21)
[2019-09-21] MEDS: INSULIN LISPRO 100 UNIT/ML SUBCUT SCH ×8 (01:15→17:38)
[2019-09-21] MEDS: PANTOPRAZOLE 40 MG VIAL IV SCH (03:26)
[2019-09-21 06:28] LABS: Hematocrit 34.2 VOL% (42.0-52.0); Hemoglobin 11.1 GM/DL (14.0-18.0); Immature Granulocytes Absolute 0.05 #; Lymphocytes # 0.4 10*3/uL (1.4-4.0); Mean Corpuscular HGB Conc 32.5 GM/DL (32-36); Mean Corpuscular Volume 85.7 FL (87-102); Monocytes % 5.7 % (1.7-12.7); Neutrophils % 86.3 % (38.7-73.9); Red Blood Count 3.99 MC/CUMM (3.8-5.5); Red Cell Distribution Width 14.6 % (9.3-17.3); White Blood Count 5.3 T/CUMM (4-12)
[2019-09-21 06:31] LABS: Platelet Count 75 T/CUMM (130-400)
[2019-09-21 06:46] LABS: Albumin 2.3 G/DL (3.4-5.0); Bilirubin,Total 0.4 MG/DL (0.2-1.0); Calcium 8.2 MG/DL (8.5-10.1); Osmolality,Calculated 322.3 MOS/KG (273-304); Total Protein 5.8 G/DL (6.4-8.3)
[2019-09-21 07:00] LABS: Ovalocytes Slight; Platelet Estimate Decreased
[2019-09-21] MEDS: busPIRone 5 MG TABLET PO SCH ×2 (08:58→20:45)
[2019-09-21] MEDS: ASPIRIN EC 81 MG TABLET PO SCH (08:58)
[2019-09-21] MEDS: ASCORBIC ACID 500 MG TABLET PO SCH ×2 (08:59→20:45)
[2019-09-21] MEDS: METOPROLOL TARTRATE 25 MG TABLET PO SCH ×2 (08:59→20:45)
[2019-09-21] MEDS: ENOXAPARIN 40 MG/0.4 ML SYRINGE SUBCUT SCH ×2 (08:59→20:45)
[2019-09-21] MEDS: MENTHOL/ZINC OXIDE OINT 71 GM JAR TOP SCH ×2 (08:59→20:45)
[2019-09-21] MEDS: ATORVASTATIN 40 MG TABLET PO SCH (08:59)
[2019-09-21] MEDS: DEXAMETHASONE 4 MG/1 ML VIAL IV SCH (08:59)
[2019-09-21] MEDS ORDERED: ENOXAPARIN 30 MG/0.3 ML SYRINGE SUBCUT SCH (09:00)
[2019-09-21] MEDS: REMDESIVIR 100 MG in SODIUM CHLORIDE 0.9% 230 ML IV SCH (12:29)
[2019-09-21] MEDS: LEVOFLOXACIN INJ 500 MG in PREMIX 1 EACH IV SCH (17:38)
[2019-09-21] MEDS: SERTRALINE 25 MG TABLET PO SCH (20:45)
[2019-09-21] MEDS: HYDROmorphone 2 MG/1 ML VIAL IV PRN (20:45)
[2019-09-21] MEDS: risperiDONE 1 MG TABLET PO SCH (20:45)
[2019-09-21] MEDS: INSULIN GLARGINE 100 UNIT/ML SUBCUT SCH (20:45)
[2019-09-22] MEDS: INSULIN LISPRO 100 UNIT/ML SUBCUT SCH ×10 (00:30→23:59)
[2019-09-22 06:15] LABS: Basophils % 0.2 % (0.0-0.8); Eosinophils % 0.5 % (0.00-10.9); Hematocrit 36.2 VOL% (42.0-52.0); Hemoglobin 11.8 GM/DL (14.0-18.0); Immature Granulocytes % 1.9 %; Immature Granulocytes Absolute 0.12 #; Lymphocytes # 0.6 10*3/uL (1.4-4.0); Lymphocytes % 9.5 % (21.2-54.2); Mean Corpuscular HGB Conc 32.6 GM/DL (32-36); Mean Corpuscular Volume 85.8 FL (87-102); Mean Platelet Volume 13.2 FL (9.6-12.0); Neutrophils % 81.9 % (38.7-73.9); Red Blood Count 4.22 MC/CUMM (3.8-5.5); Red Cell Distribution Width 14.3 % (9.3-17.3); White Blood Count 6.2 T/CUMM (4-12)
[2019-09-22 06:21] LABS: Platelet Count 82 T/CUMM (130-400)
[2019-09-22 06:37] LABS: Hypochromasia Slight; Microcytosis Slight; Ovalocytes Slight; Platelet Estimate Decreased
[2019-09-22 06:39] LABS: Albumin 2.3 G/DL (3.4-5.0); Bilirubin,Total 0.4 MG/DL (0.2-1.0); Calcium 8.2 MG/DL (8.5-10.1); Osmolality,Calculated 316.6 MOS/KG (273-304); Total Protein 5.9 G/DL (6.4-8.3)
[2019-09-22] MEDS: ENOXAPARIN 40 MG/0.4 ML SYRINGE SUBCUT SCH (08:50)
[2019-09-22] MEDS: METOPROLOL TARTRATE 25 MG TABLET PO SCH ×2 (08:50→20:53)
[2019-09-22] MEDS: ATORVASTATIN 40 MG TABLET PO SCH (08:50)
[2019-09-22] MEDS: DEXAMETHASONE 4 MG/1 ML VIAL IV SCH (08:50)
[2019-09-22] MEDS: busPIRone 5 MG TABLET PO SCH ×2 (08:50→20:53)
[2019-09-22] MEDS: ASPIRIN EC 81 MG TABLET PO SCH (08:50)
[2019-09-22] MEDS: ASCORBIC ACID 500 MG TABLET PO SCH ×2 (08:50→20:52)
[2019-09-22] MEDS: MENTHOL/ZINC OXIDE OINT 71 GM JAR TOP SCH ×2 (08:50→20:55)
[2019-09-22] MEDS: REMDESIVIR 100 MG in SODIUM CHLORIDE 0.9% 230 ML IV SCH (12:40)
[2019-09-22] MEDS: HYDROmorphone 2 MG/1 ML VIAL IV PRN (12:40)
[2019-09-22] MEDS: SERTRALINE 25 MG TABLET PO SCH (20:52)
[2019-09-22] MEDS: INSULIN GLARGINE 100 UNIT/ML SUBCUT SCH (20:53)
[2019-09-22] MEDS: risperiDONE 1 MG TABLET PO SCH (20:53)
[2019-09-22] MEDS: APIXABAN 5 MG TABLET PO SCH (20:53)
[2019-09-23] MEDS: INSULIN LISPRO 100 UNIT/ML SUBCUT SCH ×8 (05:34→23:43)
[2019-09-23 05:42] LABS: Basophils % 0.1 % (0.0-0.8); Eosinophils # 0.1 10*3/uL (0.0-0.87); Eosinophils % 0.7 % (0.00-10.9); Hematocrit 39.5 VOL% (42.0-52.0); Hemoglobin 13.1 GM/DL (14.0-18.0); Immature Granulocytes % 1.7 %; Immature Granulocytes Absolute 0.17 #; Lymphocytes # 0.7 10*3/uL (1.4-4.0); Lymphocytes % 7.5 % (21.2-54.2); Mean Corpuscular HGB Conc 33.2 GM/DL (32-36); Mean Corpuscular Volume 83.9 FL (87-102); Mean Platelet Volume 13.5 FL (9.6-12.0); Monocytes % 5.9 % (1.7-12.7); Neutrophils % 84.1 % (38.7-73.9); Platelet Count 93 T/CUMM (130-400); Red Blood Count 4.71 MC/CUMM (3.8-5.5); Red Cell Distribution Width 13.9 % (9.3-17.3); White Blood Count 9.9 T/CUMM (4-12)
[2019-09-23 06:10] LABS: Hypochromasia 1+; Lymphocytes 8 % (20-55); Ovalocytes Slight; Platelet Estimate Decreased; Segmented Neutrophils 90 % (50-85); Total Cells Counted 100
[2019-09-23 06:11] LABS: Albumin 2.4 G/DL (3.4-5.0); Bilirubin,Total 0.4 MG/DL (0.2-1.0); Calcium 7.7 MG/DL (8.5-10.1); Microcytosis Slight; Osmolality,Calculated 308.1 MOS/KG (273-304); Total Protein 5.7 G/DL (6.4-8.3)
[2019-09-23] MEDS: APIXABAN 5 MG TABLET PO SCH ×2 (09:22→21:51)
[2019-09-23] MEDS: busPIRone 5 MG TABLET PO SCH ×2 (09:22→21:51)
[2019-09-23] MEDS: ASCORBIC ACID 500 MG TABLET PO SCH ×2 (09:22→21:51)
[2019-09-23] MEDS: oxyCODONE/ACETAMINOPHEN 5-325 MG TABLET PO PRN (09:23)
[2019-09-23] MEDS: ASPIRIN EC 81 MG TABLET PO SCH (09:23)
[2019-09-23] MEDS: ATORVASTATIN 40 MG TABLET PO SCH (09:23)
[2019-09-23] MEDS: DEXAMETHASONE 4 MG/1 ML VIAL IV SCH (09:23)
[2019-09-23] MEDS: METOPROLOL TARTRATE 25 MG TABLET PO SCH ×2 (09:23→21:50)
[2019-09-23] MEDS: MENTHOL/ZINC OXIDE OINT 71 GM JAR TOP SCH ×2 (09:24→21:52)
[2019-09-23] MEDS: risperiDONE 1 MG TABLET PO SCH ×2 (12:28→21:50)
[2019-09-23] MEDS: REMDESIVIR 100 MG in SODIUM CHLORIDE 0.9% 230 ML IV SCH (12:28)
[2019-09-23] MEDS: LEVOFLOXACIN INJ 500 MG in PREMIX 1 EACH IV SCH (16:10)
[2019-09-23] MEDS: SERTRALINE 25 MG TABLET PO SCH (21:50)
[2019-09-23] MEDS: INSULIN GLARGINE 100 UNIT/ML SUBCUT SCH (21:51)
[2019-09-24] MEDS: INSULIN LISPRO 100 UNIT/ML SUBCUT SCH ×6 (05:35→17:43)
[2019-09-24 05:47] LABS: Basophils % 0.1 % (0.0-0.8); Eosinophils # 0.1 10*3/uL (0.0-0.87); Eosinophils % 0.6 % (0.00-10.9); Hematocrit 35.4 VOL% (42.0-52.0); Hemoglobin 11.7 GM/DL (14.0-18.0); Immature Granulocytes % 1.4 %; Immature Granulocytes Absolute 0.13 #; Lymphocytes # 0.5 10*3/uL (1.4-4.0); Lymphocytes % 5.2 % (21.2-54.2); Mean Corpuscular HGB Conc 33.1 GM/DL (32-36); Mean Corpuscular Volume 83.3 FL (87-102); Monocytes % 4.6 % (1.7-12.7); Neutrophils % 88.1 % (38.7-73.9); Red Blood Count 4.25 MC/CUMM (3.8-5.5); Red Cell Distribution Width 13.9 % (9.3-17.3)
[2019-09-24 05:49] LABS: Platelet Count 99 T/CUMM (130-400)
[2019-09-24 06:17] LABS: Albumin 2.2 G/DL (3.4-5.0); Bilirubin,Total 0.5 MG/DL (0.2-1.0); Calcium 7.9 MG/DL (8.5-10.1); Osmolality,Calculated 301.3 MOS/KG (273-304); Total Protein 5.7 G/DL (6.4-8.3)
[2019-09-24] MEDS: ASPIRIN EC 81 MG TABLET PO SCH (09:05)
[2019-09-24] MEDS: risperiDONE 1 MG TABLET PO SCH ×2 (09:06→21:30)
[2019-09-24] MEDS: MENTHOL/ZINC OXIDE OINT 71 GM JAR TOP SCH ×2 (09:06→21:30)
[2019-09-24] MEDS: DEXAMETHASONE 4 MG/1 ML VIAL IV SCH (09:06)
[2019-09-24] MEDS: METOPROLOL TARTRATE 25 MG TABLET PO SCH ×2 (09:06→21:30)
[2019-09-24] MEDS: ATORVASTATIN 40 MG TABLET PO SCH (09:06)
[2019-09-24] MEDS: APIXABAN 5 MG TABLET PO SCH ×2 (09:06→21:30)
[2019-09-24] MEDS: ASCORBIC ACID 500 MG TABLET PO SCH ×2 (09:06→21:30)
[2019-09-24] MEDS: busPIRone 5 MG TABLET PO SCH ×2 (09:06→21:30)
[2019-09-24] MEDS: REMDESIVIR 100 MG in SODIUM CHLORIDE 0.9% 230 ML IV SCH (13:15)
[2019-09-24] MEDS: SERTRALINE 25 MG TABLET PO SCH (21:30)
[2019-09-24] MEDS: INSULIN GLARGINE 100 UNIT/ML SUBCUT SCH (21:30)
[2019-09-24] MEDS: oxyCODONE/ACETAMINOPHEN 5-325 MG TABLET PO PRN (21:30)
[2019-09-25] MEDS: INSULIN LISPRO 100 UNIT/ML SUBCUT SCH ×8 (00:15→17:04)
[2019-09-25 05:40] LABS: Basophils % 0.1 % (0.0-0.8); Eosinophils % 0.4 % (0.00-10.9); Hematocrit 29.4 VOL% (42.0-52.0); Immature Granulocytes % 1.2 %; Immature Granulocytes Absolute 0.12 #; Lymphocytes # 0.5 10*3/uL (1.4-4.0); Lymphocytes % 5.2 % (21.2-54.2); Mean Corpuscular Volume 80.5 FL (87-102); Mean Platelet Volume 14.1 FL (9.6-12.0); Monocytes % 4.7 % (1.7-12.7); Neutrophils % 88.4 % (38.7-73.9); Platelet Count 114 T/CUMM (130-400); Red Blood Count 3.65 MC/CUMM (3.8-5.5); Red Cell Distribution Width 13.9 % (9.3-17.3)
[2019-09-25 06:19] LABS: Alanine Aminotransferase 40 U/L (16-61); Albumin 1.9 G/DL (3.4-5.0); Alkaline Phosphatase 65 U/L (45-117); Aspartate Amino Transferase 23 U/L (0-37); Bilirubin,Total < 0.39 MG/DL (0.2-1.0); Blood Urea Nitrogen 87 MG/DL (7-18); Calcium 7.5 MG/DL (8.5-10.1); Estimated Glom Filtration Rate 37 ML/MIN; Glucose 83 MG/DL (74-106); Osmolality,Calculated 298.8 MOS/KG (273-304); Total Protein 5.4 G/DL (6.4-8.3)
[2019-09-25] MEDS: DEXAMETHASONE 4 MG/1 ML VIAL IV SCH (09:00)
[2019-09-25] MEDS: MENTHOL/ZINC OXIDE OINT 71 GM JAR TOP SCH ×2 (09:00→20:02)
[2019-09-25] MEDS: ASPIRIN EC 81 MG TABLET PO SCH (09:00)
[2019-09-25] MEDS: busPIRone 5 MG TABLET PO SCH ×2 (09:00→20:01)
[2019-09-25] MEDS: ASCORBIC ACID 500 MG TABLET PO SCH ×2 (09:01→20:02)
[2019-09-25] MEDS: ATORVASTATIN 40 MG TABLET PO SCH (09:01)
[2019-09-25] MEDS: risperiDONE 1 MG TABLET PO SCH ×2 (09:01→20:02)
[2019-09-25] MEDS: METOPROLOL TARTRATE 25 MG TABLET PO SCH ×2 (09:01→20:02)
[2019-09-25] MEDS: APIXABAN 5 MG TABLET PO SCH (09:01)
[2019-09-25] MEDS: oxyCODONE/ACETAMINOPHEN 5-325 MG TABLET PO PRN ×2 (09:54→20:02)
[2019-09-25 11:25] LABS: Hypochromasia 2+; Platelet Estimate Adequate; Schistocytes Slight
[2019-09-25] MEDS: SERTRALINE 25 MG TABLET PO SCH (20:02)
[2019-09-25] MEDS: INSULIN GLARGINE 100 UNIT/ML SUBCUT SCH (20:22)
[2019-09-25] MEDS ORDERED: APIXABAN 5 MG TABLET PO SCH (21:00)
[2019-09-26] MEDS: INSULIN LISPRO 100 UNIT/ML SUBCUT SCH ×8 (00:44→17:11)
[2019-09-26] MEDS: MENTHOL/ZINC OXIDE OINT 71 GM JAR TOP SCH ×2 (09:00→21:46)
[2019-09-26] MEDS: ASCORBIC ACID 500 MG TABLET PO SCH ×2 (09:00→21:45)
[2019-09-26] MEDS: busPIRone 5 MG TABLET PO SCH ×2 (09:00→21:45)
[2019-09-26] MEDS: ASPIRIN EC 81 MG TABLET PO SCH (09:00)
[2019-09-26] MEDS: risperiDONE 1 MG TABLET PO SCH ×2 (09:00→21:45)
[2019-09-26] MEDS: ATORVASTATIN 40 MG TABLET PO SCH (09:00)
[2019-09-26] MEDS: METOPROLOL TARTRATE 25 MG TABLET PO SCH ×2 (09:00→21:45)
[2019-09-26] MEDS: SERTRALINE 25 MG TABLET PO SCH (21:45)
[2019-09-26] MEDS: INSULIN GLARGINE 100 UNIT/ML SUBCUT SCH (21:46)
[2019-09-27] MEDS: INSULIN LISPRO 100 UNIT/ML SUBCUT SCH ×7 (00:28→23:44)
[2019-09-27] MEDS: DEXTROSE 5% 1,000 ML IV SCH ×2 (01:45→17:20)
[2019-09-27] MEDS: risperiDONE 1 MG TABLET PO SCH ×2 (08:24→20:01)
[2019-09-27] MEDS: ASCORBIC ACID 500 MG TABLET PO SCH ×2 (08:25→20:01)
[2019-09-27] MEDS: ASPIRIN EC 81 MG TABLET PO SCH (08:25)
[2019-09-27] MEDS: busPIRone 5 MG TABLET PO SCH ×2 (08:25→20:01)
[2019-09-27] MEDS: ATORVASTATIN 40 MG TABLET PO SCH (08:25)
[2019-09-27] MEDS: METOPROLOL TARTRATE 25 MG TABLET PO SCH ×2 (08:36→20:01)
[2019-09-27] MEDS: MENTHOL/ZINC OXIDE OINT 71 GM JAR TOP SCH ×2 (10:45→20:01)
[2019-09-27] MEDS: SERTRALINE 25 MG TABLET PO SCH (20:01)
[2019-09-28] MEDS: INSULIN LISPRO 100 UNIT/ML SUBCUT SCH ×3 (05:37→19:07)
[2019-09-28 05:44] LABS: Basophils % 0.1 % (0.0-0.8); Eosinophils # 0.1 10*3/uL (0.0-0.87); Eosinophils % 0.7 % (0.00-10.9); Hematocrit 32.5 VOL% (42.0-52.0); Immature Granulocytes Absolute 0.12 #; Lymphocytes # 0.6 10*3/uL (1.4-4.0); Lymphocytes % 4.7 % (21.2-54.2); Mean Corpuscular HGB Conc 33.8 GM/DL (32-36); Mean Corpuscular Volume 80.8 FL (87-102); Mean Platelet Volume 12.5 FL (9.6-12.0); Monocytes % 4.6 % (1.7-12.7); Neutrophils % 88.9 % (38.7-73.9); Platelet Count 178 T/CUMM (130-400); Red Blood Count 4.02 MC/CUMM (3.8-5.5); Red Cell Distribution Width 13.8 % (9.3-17.3); White Blood Count 12.4 T/CUMM (4-12)
[2019-09-28 05:52] LABS: INR 1.1; PT Patient Result 11.8 SECS (9.8-11.9)
[2019-09-28 06:08] LABS: Calcium 7.5 MG/DL (8.5-10.1); Osmolality,Calculated 294.1 MOS/KG (273-304)
[2019-09-28 06:14] LABS: Eosinophils 1 % (0-10); Lymphocytes 6 % (20-55); Segmented Neutrophils 91 % (50-85); Total Cells Counted 100
[2019-09-28 06:19] LABS: Microcytosis Slight; Ovalocytes Slight; Platelet Estimate Adequate
[2019-09-28] MEDS ORDERED: ceFAZolin 1,000 MG in SYRINGE 1 EACH IV ONE (08:00)
[2019-09-28] MEDS ORDERED: LIDOCAINE 100 MG/5 ML SYRINGE ONE (09:00)
[2019-09-28] MEDS ORDERED: propofoL 200 MG/20 ML VIAL IV ONE (09:00)
[2019-09-28] MEDS: ASCORBIC ACID 500 MG TABLET PO SCH ×2 (12:40→21:00)
[2019-09-28] MEDS: ASPIRIN EC 81 MG TABLET PO SCH (12:40)
[2019-09-28] MEDS: risperiDONE 1 MG TABLET PO SCH ×2 (12:40→21:00)
[2019-09-28] MEDS: ATORVASTATIN 40 MG TABLET PO SCH (12:41)
[2019-09-28] MEDS: busPIRone 5 MG TABLET PO SCH ×2 (12:41→21:00)
[2019-09-28] MEDS: METOPROLOL TARTRATE 25 MG TABLET PO SCH ×2 (12:42→21:01)
[2019-09-28] MEDS: MENTHOL/ZINC OXIDE OINT 71 GM JAR TOP SCH ×2 (13:25→21:08)
[2019-09-28] MEDS: SODIUM CHLORIDE 0.9% 1,000 ML IV SCH (14:48)
[2019-09-28] MEDS: DEXTROSE 5% 1,000 ML IV SCH ×2 (16:38)
[2019-09-28] MEDS: ALBUTEROL INHALER 18 GM INH SCH ×2 (16:38→21:01)
[2019-09-28 16:48] LABS: Apearance,Urine Slightly Hazy (Clear); Bacteria,Urine Many /HPF (Few); Bilirubin,Urine Negative (Negative); Blood, Urine Large mg/dL (Negative); Glucose,Urine (UA) Negative (Negative); Ketones,Urine 5 mg/dL (Negative); Mucus,Urine Occasional /LPF (Occasional); Nitrite,Urine Negative (Negative); Protein,Urine 30 MG/DL; RBC,Urine 47 /HPF (0-4); Urine Color Yellow (Yellow); Urine Specific Gravity 1.012 (1.001-1.035); Urine Urobilinogen < 2.0 EU/DL (0.2-1.0); WBC,Urine 21 /HPF (0-6)
[2019-09-28] MEDS: SERTRALINE 25 MG TABLET PO SCH (21:00)
[2019-09-29] MEDS: INSULIN LISPRO 100 UNIT/ML SUBCUT SCH ×4 (01:48→17:50)
[2019-09-29] MEDS: ALBUTEROL INHALER 18 GM INH SCH ×4 (03:18→21:22)
[2019-09-29 06:25] LABS: Basophils % 0.2 % (0.0-0.8); Eosinophils # 0.1 10*3/uL (0.0-0.87); Eosinophils % 1.1 % (0.00-10.9); Hematocrit 28.8 VOL% (42.0-52.0); Hemoglobin 9.4 GM/DL (14.0-18.0); Immature Granulocytes % 0.7 %; Immature Granulocytes Absolute 0.06 #; Lymphocytes # 0.6 10*3/uL (1.4-4.0); Lymphocytes % 6.9 % (21.2-54.2); Mean Corpuscular HGB Conc 32.6 GM/DL (32-36); Mean Corpuscular Volume 84.5 FL (87-102); Mean Platelet Volume 12.3 FL (9.6-12.0); Monocytes % 4.4 % (1.7-12.7); Neutrophils % 86.7 % (38.7-73.9); Platelet Count 179 T/CUMM (130-400); Red Blood Count 3.41 MC/CUMM (3.8-5.5); Red Cell Distribution Width 13.9 % (9.3-17.3); White Blood Count 8.9 T/CUMM (4-12)
[2019-09-29 06:39] LABS: Calcium 7.4 MG/DL (8.5-10.1); Osmolality,Calculated 296.7 MOS/KG (273-304)
[2019-09-29] MEDS: MENTHOL/ZINC OXIDE OINT 71 GM JAR TOP SCH ×2 (09:38→21:21)
[2019-09-29] MEDS: risperiDONE 1 MG TABLET PO SCH ×2 (09:38→21:22)
[2019-09-29] MEDS: ASPIRIN EC 81 MG TABLET PO SCH (09:38)
[2019-09-29] MEDS: ASCORBIC ACID 500 MG TABLET PO SCH ×2 (09:38→21:22)
[2019-09-29] MEDS: busPIRone 5 MG TABLET PO SCH ×2 (09:38→21:21)
[2019-09-29] MEDS: ATORVASTATIN 40 MG TABLET PO SCH (09:38)
[2019-09-29] MEDS: METOPROLOL TARTRATE 25 MG TABLET PO SCH ×2 (09:38→21:22)
[2019-09-29] MEDS: SODIUM CHLORIDE 0.9% 1,000 ML IV SCH (09:39)
[2019-09-29] MEDS: oxyCODONE/ACETAMINOPHEN 5-325 MG TABLET PO PRN (09:40)
[2019-09-29] MEDS ORDERED: cefTRIAXone 1,000 MG in SODIUM CHLORIDE 0.9% 100 ML IV SCH (10:30)
[2019-09-29] MEDS: CEFUROXIME 250 MG TABLET PEG SCH ×2 (11:52→21:21)
[2019-09-29] MEDS: DEXTROSE 5% 1,000 ML IV SCH (12:47)
[2019-09-29] MEDS ORDERED: FUROSEMIDE 40 MG/4 ML VIAL IV ONE (15:58)
[2019-09-29] MEDS: SERTRALINE 25 MG TABLET PO SCH (21:22)
[2019-09-30] MEDS: INSULIN LISPRO 100 UNIT/ML SUBCUT SCH ×3 (00:46→12:58)
[2019-09-30] MEDS: ALBUTEROL INHALER 18 GM INH SCH ×3 (03:14→14:34)
[2019-09-30 05:11] LABS: Basophils % 0.2 % (0.0-0.8); Eosinophils # 0.1 10*3/uL (0.0-0.87); Hematocrit 28.2 VOL% (42.0-52.0); Hemoglobin 9.6 GM/DL (14.0-18.0); Immature Granulocytes % 0.8 %; Immature Granulocytes Absolute 0.07 #; Lymphocytes # 0.6 10*3/uL (1.4-4.0); Lymphocytes % 6.6 % (21.2-54.2); Mean Platelet Volume 11.7 FL (9.6-12.0); Monocytes % 3.6 % (1.7-12.7); Neutrophils % 87.8 % (38.7-73.9); Platelet Count 190 T/CUMM (130-400); Red Blood Count 3.48 MC/CUMM (3.8-5.5); Red Cell Distribution Width 13.9 % (9.3-17.3); White Blood Count 9.2 T/CUMM (4-12)
[2019-09-30 05:24] LABS: Calcium 7.5 MG/DL (8.5-10.1); Osmolality,Calculated 298.8 MOS/KG (273-304); Prealbumin 12.9 MG/DL (20-40)
[2019-09-30 05:51] LABS: Hypochromasia 1+; Lymphocytes 4 % (20-55); Microcytosis 1+; Ovalocytes Slight; Platelet Estimate Adequate; Segmented Neutrophils 92 % (50-85); Total Cells Counted 100
[2019-09-30] MEDS: SODIUM CHLORIDE 0.9% 1,000 ML IV SCH (07:37)
[2019-09-30] MEDS ORDERED: APIXABAN 5 MG TABLET PO SCH (09:00)
[2019-09-30] MEDS: busPIRone 5 MG TABLET PO SCH (09:46)
[2019-09-30] MEDS: ASPIRIN EC 81 MG TABLET PO SCH (09:46)
[2019-09-30] MEDS: MENTHOL/ZINC OXIDE OINT 71 GM JAR TOP SCH (09:47)
[2019-09-30] MEDS: CEFUROXIME 250 MG TABLET PEG SCH (09:50)
[2019-09-30] MEDS: ASCORBIC ACID 500 MG TABLET PO SCH (09:51)
[2019-09-30] MEDS: METOPROLOL TARTRATE 25 MG TABLET PO SCH (09:51)
[2019-09-30] MEDS: risperiDONE 1 MG TABLET PO SCH (09:51)
[2019-09-30] MEDS: ATORVASTATIN 40 MG TABLET PO SCH (09:51)
[2019-09-30] MEDS: DEXTROSE 5% 1,000 ML IV SCH (09:52)
[2019-09-30 12:15] VITALS: BP 141/61
== END 2019-09-30 16:04 | disposition home or self-care (01) | DRG 177 ==
LOC: EDUNIT# → N.ED 21:34 → N.EDINP 09-16 00:59 → SUPCPDRO 09-16 00:59 → SUATTDRO 09-16 00:59 → N.CC 09-16 02:12 → N.2E 09-20 18:26
PROVIDERS: ADMIT Internal Medicine; ATTEND Internal Medicine
PROC: EGDWPEG (ICD-10-PCS; 2019-09-28 10:35)